=== PATIENT | female | born 1995 | race Caucasian/White ===

== ENCOUNTER 2022-02-20 09:48 | Outpatient (RCR) | payer MEDICAID, SELFPAY ==
--- NOTE | 2022-02-20 09:10 | BH.SGPN.GN ---
Behaviors/Verbalizations/Mental Status: [] Eye contact is good. Motor activity is appropriate. Appearance is casual. Speech is Appropriate. Mood is depressed. Affect is flat. Thoughts are linear and logical. No evidence of psychosis. Reviewed daily check in sheet and no reports of suicidal ideations or intent. Client Response/Progress/Benefit: [] Pt participated at times during group discussions on CBT techniques. Attentive. Pt shared that today was her first day in IOP. Reports that she has been in counseling since I was [age] years old and noticed limited improvement. Over the last several months her depression, anxiety, and stress have increased which has exacerbated her mental health symptoms. She is hoping to learn more effective skillls to better manger her distress. No progress noted as this was pt's first day in IOP. Benefited from group support and encouragment. Group members provided some advice and feedback for her fist day/week in IOP. Will continue in IOP to maintian safety, increase healthy coping, and stabilize mood. Narrative Note: []
--- NOTE | 2022-02-20 10:05 | BH.SGPN.GN ---
Behaviors/Verbalizations/Mental Status: []Client alert and oriented, casually dressed and grooming appears tended to. Eye contact good. Motor activity appropriate. Speech within normal limits. Affect constricted, mood anxious and depressed. Thoughts linear, logical, no signs of hallucinations or delusions. Client Response/Progress/Benefit: []Pt new to IOP program. Did well to remain engaged throughout AEB taking notes, listening attentively, and providing input throughout. Attentive during psychoeducation and discussed the importance of goal-setting with the group. Pt nodded in agreement as group discussed that goals can provide a sense of purpose and something to work towards. Group identified potential benefits of having goals to include: they motivate, increase self-confidence, provide a sense of accomplishment, help improve relationships, and provide a sense of purpose. Group also worked together to identify barriers to goal-setting which included; fear of failure, lack of motivation/procrastination, depression, and lack of support from others. Pt identified personal barriers to include lack of healthy support and self-doubt. Benefited from increased awareness of benefits and barriers to goal-setting. Pt will continue in IOP to prevent decompensation, increase healthy coping and emotion regulation skills, as well as further improve daily functioning. Narrative Note: []
--- NOTE | 2022-02-20 11:08 | BH.SGPN.GN ---
Behaviors/Verbalizations/Mental Status: []Client alert and oriented, casually dressed and groomed. Eye contact good. Motor activity appropriate. Speech within normal limits. Affect constricted, mood anxious and depressed. Thoughts linear, logical, no signs of hallucinations or delusions. Client Response/Progress/Benefit: []Pt was an active participant in group discussions and activities. Engaged in activity. Pt identified a SMART goal for the next week is to: take medications 2x per day over the next week. Pt reported this would benefit her by creating healthier habits and lessening her anxiety. Identified fear of side effects and fear of making things worse as potential barriers to completing this goal. Pt able to identify several solutions, such as educating herself on the benefits and using healthy coping skills, that can help overcome identified barriers. Benefited from group by being able to utilize SMART educate to create a goal. Pt to continue IOP to increase healthy coping skills, challenge distorted and negative thoughts and prevent decompensation. Narrative Note: []
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
--- NOTE | 2022-02-20 15:46 | BH.COMM ---
Communication Note - Communication with Client Communication Note: Met with pt to complete initial paperwork. No significant changes since pre-admission screening. Completed [place] Suicide Screening. Pt presents as low risk. Pt denies any active suicidal ideations, plan, or intent as of 02/20/22. Pt has history of self-injurious behaviors via cutting and burning but denies any in the past 5 years. Pt denies any history of prior suicide attempts. She does report a history of prior active suicide ideation with a plan overdose approximately two years ago following a break-up. Pt admits to writing letters to say good-bye to her family at that time as well but did not act on this plan out of fears of her family having to find her and not wanting to be a burden. Pt admits to having thoughts of and passive SI about once a week at present, and notes these thoughts are fleeting and last no longer than a few seconds. Denies any plan or intent to act on these thoughts and her family are her biggest protective factor. No access to weapons. Future oriented and reports ability to maintain safety. Does not present as imminent risk due to no active SI, plan, or intent. Case discussed with Dr. Meier with plan to admit to [facility] level of care with dx of Major depressive disorder, recurrent, severe without psychosis, F33.2
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
--- NOTE | 2022-02-20 15:48 | BH.PSA ---
Suicide Assessment Treatment Plan Recommendations
--- NOTE | 2022-02-21 09:05 | BH.SGPN.GN ---
Behaviors/Verbalizations/Mental Status: [] Eye contact is good. Motor activity is appropriate. Appearance is casual. Speech is Appropriate. Mood is depressed. Affect is flat. Thoughts are linear and logical. No evidence of psychosis. Reviewed daily check in sheet and no reports of suicidal ideations or intent. Client Response/Progress/Benefit: [] Pt participated when prompted. Attentive. Daily symptom tracker notes 4/5 for depression and anxiety. Emotion for today is overwhelmed. Mental health win was pushing the limits yesterday regarding her mental health. Vague regarding what this meant however notes it was positive. Another mental health win was being here today despite her anxiety. She reports being frustrated with traditional outpatient counseling estimating that she has had several therapist throughout her life due to they keep leaving. Her most recent counseling left the agency and she is in the process of getting a new therapist assigned. Talked about the impact that this has had on her. Group members empathized and provided some feedback. Limited progress noted. Benefited from support, encouragement, and feedback. Will conitnue in IOP to maintain safety, increase health coping, and improve daily functioning. Narrative Note: []
--- NOTE | 2022-02-21 10:05 | BH.SGPN.GN ---
Behaviors/Verbalizations/Mental Status: []Eye contact is good. Motor activity is appropriate. Appearance is casual. Speech is Appropriate. Mood is anxious and depressed. Affect is constricted. Thoughts are linear and logical. No evidence of psychosis. Client Response/Progress/Benefit: []Pt was an active participant in group discussions. Attentive during psychoeducation on 4 types of conflict styles (Competing, Collaborating, Avoiding, and Accommodating). Attentive as group worked to define conflict and identify how conflict is helpful. Pt worked with peers in identifying barriers to addressing or managing conflict which included: learned behaviors, fear of disappointing or upsetting others, fear of being hurt, past negative experiences with conflict, and shutting down. Pt believes her conflict style is accommodating and noted she often goes along with what others say out of fear of upsetting or disappointing others. Pt stated struggling with being a ?people pleaser?. Benefited from group due to increase insight and awareness of conflict, conflict styles, and obstacles to managing conflict. Pt to continue IOP to continue use of healthy coping, improve confidence and healthy communication skills, as well as prevent decompensation. Narrative Note: []
--- NOTE | 2022-02-21 10:10 | BH.SGPN.GN ---
Behaviors/Verbalizations/Mental Status: [] Eye contact is good. Motor activity is appropriate. Appearance is casual. Speech is Appropriate. Mood is depressed. Affect is flat. Thoughts are linear and logical. No evidence of psychosis. Client Response/Progress/Benefit: [] Pt was an active participant in group discussions. Attentive during psycho-education on 4 types of conflict styles (Competing, Collaborating, Avoiding, and Accommodating). Worked with group to define conflict and identify how conflict is helpful. With peers identified barriers to addressing or managing conflict which included: fear of upsetting others, embarrassing self, abandonment, past negative experiences with conflict, and shutting down. Pt believes her conflict style changes are mostly accommodating as she avoids conflict. Benefited from group due to increase insight and awareness of conflict, conflict styles, and obstacles to managing conflict. Will continue in IOP to maintain safety, prevent decompensation, and increase healthy coping skills. Narrative Note: []
--- NOTE | 2022-02-22 09:00 | BH.SGPN.GN ---
Behaviors/Verbalizations/Mental Status: [] Eye contact is good. Motor activity is appropriate. Appearance is casual. Speech is Appropriate. Mood is anxious. Affect is constricted. Thoughts are linear and logical. No evidence of psychosis. Reviewed daily check in sheet and no reports of suicidal ideations or intent. Client Response/Progress/Benefit: [] Pt was an active participant in group discussion. Attentive. Provided appropriate feedback. Mental health win as not crying yesterday which she stated she has been crying everyday for awhile. Pt couldn't identify anything specific that was helped her mood yesterday. Pt reported additional mental health win as making it to IOP all 3 days this week. Pt connected with peer that gas prices are a stressor for her because she also drives an hour to treatment. Stated additional stressor is her house currently being remodeled which increases noise, routine disruption and constantly having workers in her home. Reported she knows the remodel will be helpful to her grandma once it's complete but finds it currently stressful. Emotion is anxious. Benefited from group support, encouragement, and feedback. Will continue in IOP to improve daily functioning, increase healthy coping, and prevent decompensation.
--- NOTE | 2022-02-22 10:07 | BH.SGPN.GN ---
Behaviors/Verbalizations/Mental Status: []Pt alert and oriented, casually dressed and groomed. Eye contact good. Motor activity appropriate. Speech within normal limits. Affect constricted, mood anxious and dysthymic. Thoughts linear, logical, no signs of hallucinations or delusions. Client Response/Progress/Benefit: []Pt responded well to session, attentive and participating in activity. Pt nodding in connection as fellow participants discussed what fear of failure means and what contributes to the development of fear of failure. Group shared that the fear of failure can lead to isolation, self-sabotage, pushing people away, over-committing oneself, avoidance, and not asking for help. Pt shared that fear of failure has impacted her self-confidence and prevented her from trying new things in the past. Pt appeared to benefit from gaining awareness of the impact fear of failure can have on one?s mental health and wellbeing. Will continue IOP tx to reduce unhealthy coping patterns, improve mood stability, and increase daily functioning. Narrative Note: []
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
--- NOTE | 2022-02-22 12:15 | BH.DR.ITP ---
Initial Treatment Plan Patient Information Visit Information: ADMISSION DATE: EXPECTED LOS: 4-6 weeks Problems/Symptoms Problem #1:: Depression Symptom:: Sadness, hopelessness, worthlessness, guilt, anhedonia, apathy, low energy, fatigue, thoughts of self-harm, decreased concentration Problem #2:: Anxiety Symptom:: Worry, rumination, racing thoughts
[2022-02-22 12:21] VITALS: BP 122/67; PULSE 70
--- NOTE | 2022-02-27 09:01 | BH.SGPN.GN ---
Behaviors/Verbalizations/Mental Status: [] Eye contact is fair. Motor activity is appropriate. Appearance is casual. Speech is Appropriate. Mood is dysthymic and anxious. Affect is constricted. Thoughts are linear and logical. No evidence of psychosis. Reviewed daily check in sheet and no reports of suicidal ideations or intent. Client Response/Progress/Benefit: [] Pt was an active participant in group discussion. Attentive. Provided appropriate feedback. Client reported mental health positive as cleaning her room for the first time in a while. Client reported she set a timer for 10 minutes to do some cleaning and end up just continuing to clean till the room was done. Client stated having cleaned her room did not help her mood is much as she had expected it to. Client benefit additional mental positive as calling mental health agency to get a counseling appointment which is something she had been avoiding doing. Client reported stressor as being in a dark cloud for the last 3 weeks and realizing that all her supports are getting tired of it. Client reported she has not taken her increase in medication as recommended by psychiatrist last week because she is feeling anxious about it. She reported part of her is used to being depressed so she is anxious of letting that go. Appeared attentive and receptive to peers feedback about medication. Benefited from group support, encouragement, and feedback. Will continue in IOP to increase healthy coping skills, challenge negative thinking and prevent decompensation.
--- NOTE | 2022-02-27 09:18 | BH.MDN ---
Multi-Disciplinary Note - Note 45-min Individual Time Started:: 11:30 Date: 02/28/22 Purpose of session/treatment goals addressed:: To gather information on client's current stressors, symptoms, triggers, and tx goals. Another goal was build rapport and provide psychoeducation. Eye Contact:: Good Motor Activity:: Appropriate Appearance:: Casual Speech:: Appropriate Mood:: Depressed Affect:: Congruent Thoughts:: Linear, Logical, No evidence of hallucinations/delusions noted Staff Interventions:: thought challenging, motivational interviewing, psychoeducation on: - maintenance cycles and unhealthy coping, rapport building, strengths perspective, treatment planning, goal setting Client Response:: Client responded well to session, open to meeting with therapist. Client reports enjoying the IOP program so far, but at times is struggling with focus, noting ?it?s hard to keep my mind from wandering?. Client reports her biggest stressors right now include a recent falling out with her cousin, relationship issues, caring for her grandmother who has dementia, a recent miscarriage, and beginning new psychiatric medications. Client shared these stressors have been significantly impacting her mental health and that her family is getting tired of ?the constant cloud of negativity?. Client shared she has struggled with mental health for many years and she has found counseling to be of variable help. Client noted that despite being in counseling off and on since the age of 7, she does not feel she has developed any healthy means of coping with her stressors. Described relying heavily on marijuana to cope and numb herself from her problems from the age 12 until about a month ago when she was told she would have to pass a drug test in order to receive gastric bypass surgery. Reports relying on alcohol to cope since then but has not drank in the past two days. Client acknowledges that her substance use is unhealthy and detrimental to her mental health but does not feel she is ready to actively pursue sobriety at this time. Client reports she has only been sober the past two days as her ex-boyfriend, whom she is still involved with, asked her to quit drinking. Reports this has been a toxic relationship in the past and that she would return to drinking if her told her he wouldn?t care. Discussed the importance of sobriety and client during IOP treatment. Client able to see the importance of sobriety in developing healthy long-term coping skills and better managing her current stressors. Reports willingness to begin working with therapist on harms-reduction and improving healthy coping repertoire. Will meet with client again next week. Risks/Concerns:: Client admits to having chronic passive thoughts of . Client denies any active suicidal ideations, plan, or intent. Client is future oriented and reports being motivated to improve her mental health as she is ?tired of feeling like crap?. Progress Toward Goals/Plan:: Second week of IOP tx, limited progress to document as client self-reports difficulties in implementing the healthy skills discussed in the tx environment. Client reports she has learned many of the tx skills discussed in previous counseling experiences but continues to struggle with motivation or desire to consistently implement them. Client endorses mood instability with depression, chronic passive SI, crying spells, low motivation, apathy, hopelessness, worthlessness, low energy and decreased concentration, daily anxiety, and alcohol use disorder. Client is currently working on maintaining sobriety as of 2 days ago, however admits she is only doing so at the request of her ex-boyfriend whom she is still involved with. Reports hx of marijuana misuse but has been sober the last month as this is required for her upcoming gastric bypass surgery. Client commitment to developing healthier means of coping and addressing her unhealthy coping behaviors appears uncertain, and client self-admits to struggling with motivation to follow through with making healthy changes despite recognizing the need to do so. Primary support issues and history of inconsistent tx compliance. Client's goals for IOP are to learn healthy ways to cope with symptoms, develop healthier core beliefs, and be able to better cope with her current stressors. Client is in the process of connecting with outpatient counseling and psychiatry as her previous counselor recently changes positions. Will continue IOP tx to prevent decompensation, reduce the use of unhealthy coping skills, and improve functioning.
--- NOTE | 2022-03-01 09:00 | BH.SGPN.GN ---
Behaviors/Verbalizations/Mental Status: []Pt alert and oriented, neatly dressed and groomed. Eye contact good. Motor activity appropriate. Speech within normal limits. Affect constricted, mood anxious. Thoughts linear, logical, no signs of hallucinations or delusions. Reviewed pt?s symptom tracker, no risk for suicidal ideation, plan, or intent as of 03/01/22 Client Response/Progress/Benefit: []Pt responded well to session, attentive and engaged. Pt reports feeling stressed this morning as pt has not been able to pass her drug test to get approved for bariatric surgery. Pt stated she takes another test in a few weeks and pt is hopeful that she will pass that one. Pt's mental health wins today include getting to IOP despite feeling stressed and finding an outpatient therapist. Pt appeared to benefit from group support and feedback. Pt will continue IOP tx to reduce the use of unhealthy coping skills, increase mood stability, and improve daily functioning. Narrative Note: []
--- NOTE | 2022-03-01 11:10 | BH.SGPN.GN ---
Behaviors/Verbalizations/Mental Status: [] Eye contact is good. Motor activity is appropriate. Appearance is casual. Speech is Appropriate. Mood is euthymic. Affect is full. Thoughts are linear and logical. No evidence of psychosis Client Response/Progress/Benefit: [] Pt participated at times during group discussions. Attentive during psychoeducation on the 4 A's of Coping with Stress (Avoid, Alter, Adapt, Accept). Participated in experiential activity in which group members had to utilize stress management skills in the moment. Pt agreed with group consensus that activity caused her to be frustrated, tense, and anxious. She shared skills that she utilized in the moment to continue with group activity. Pt identified a stressor to focus on which was not drinking to self-medicate and will attempt to implement the coping skills of avoid to not hang out with certain people and alter her feelings by challenging thoughts to focus on the positive of staying sober. Benefited from processing in the moment stress management strategies and identifying new ways to cope with stress. Will continue in IOP to prevent decompensation, stabilize mood, and maintain safety. Narrative Note: []
--- NOTE | 2022-03-07 09:00 | BH.SGPN.GN ---
Behaviors/Verbalizations/Mental Status: [] Eye contact is good. Motor activity is appropriate. Appearance is neat. Speech is Appropriate. Mood is depressed. Affect is flat. Thoughts are linear and logical. No evidence of psychosis. Reviewed daily check in sheet and no reports of suicidal ideations or intent. Client Response/Progress/Benefit: [] Pt participated when prompted. Attentive. Emotion for today is tired. Mental health wins include I painted a mural and I finally started taking the medication that the psychiatrist here prescribed. [facility] psychiatrist had made medication changes on 02/22/22. She is vague on her reasons for not starting the medications earlier and when asked why she started yesterday stated I wanted to have something positive to say in group today. Shared obsessive thoughts about losing her friendships which is causing anxiety however again vague on trigger, frequency, or intensity of these thoughts. Limited progress noted. Benefited from group support and encouragement. Will continue in [facility] to prevent decompensation, stabilize mood, and improve functioning. Narrative Note: []
== END 2022-03-07 23:59 ==
LOC: BHIOP 09:48
PROVIDERS: Referring Provider Psychiatry & Neurology Psychiatry; Visit Provider Psychiatry & Neurology Psychiatry
DX: F33.2 Major depressive disorder, recurrent severe without psychotic features (principal); F41.1 Generalized anxiety disorder; F60.3 Borderline personality disorder; E66.9 Obesity, unspecified; Z72.89 Other problems related to lifestyle; F50.81 Binge eating disorder; F12.99 Cannabis use, unspecified with unspecified cannabis-induced disorder; Z91.410 Personal history of adult physical and sexual abuse; Z79.899 Other long term (current) drug therapy
CPT/HCPCS: 90792; H2012; H2020; S9480; T1002; 90834; 90837

== ENCOUNTER 2022-03-08 07:24 | Outpatient (RCR) | payer MEDICAID, SELFPAY ==
[2022-03-08 01:16] VITALS: BP 122/67; PULSE 70
--- NOTE | 2022-03-08 10:13 | BH.SGPN.GN ---
Behaviors/Verbalizations/Mental Status: []Client alert and oriented, casually dressed and groomed. Eye contact good. Motor activity appropriate. Speech within normal limits. Affect constricted, mood depressed and agitated. Thoughts linear, logical, no signs of hallucinations or delusions. Client Response/Progress/Benefit: [] Client somewhat engaged in session AEB providing input when prompted, taking notes, and listening attentively to others. Continues to take a mostly passive role in discussion. Client participated in activity illustrating how perspective affects mental health. Client participated in group discussion on what shapes our perspective, contributing personal beliefs and values as an example. Client appeared connected to psychoeducation on how our thoughts and attitude can become ?lenses? that we see the world through. Participated in group discussion reviewing how these lenses affect mental health treatment, nodding in agreement that a negative perspective could cause someone to be more likely to give up and assume treatment wont work. Client appeared to benefit from increased knowledge of perspective and how mental health can impact or be impacted by one?s perspective; however continues to struggle with connecting how own perspective is impacting her mental health tx. Will continue IOP treatment to improve application of healthy decision making and coping skills, prevent decompensation, and improve mood stability. Narrative Note: []
--- NOTE | 2022-03-08 11:15 | BH.SGPN.GN ---
Behaviors/Verbalizations/Mental Status: []Pt alert and oriented, neatly dressed and groomed. Eye contact good. Motor activity appropriate. Speech within normal limits. Affect congruent, mood agitated. Thoughts linear, logical, no signs of hallucinations or delusions. Client Response/Progress/Benefit: []Pt was attentive and contributed in small and larger group discussion. Pt completed strengths exploration worksheet and identified personal strengths to include: forgiveness, love, creativity, and artistic ability. Pt shared that working to recognize these personal strengths more consistently will help improve pt?s mood and increase self-worth. Shared wanting to focus on fostering personal strengths by asking for honest feedback and reminding herself of strengths through actions. Also identified barriers for acknowledging and using strengths. Benefited from identifying personal strengths and strategies for enhancing use of identified strengths. Pt to continue IOP tx to reduce the use of unhealthy coping skills, improve mood stability, and prevent decompensation. Narrative Note: []
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
--- NOTE | 2022-03-15 10:13 | BH.SGPN.GN ---
Behaviors/Verbalizations/Mental Status: []Eye contact is good. Motor activity is appropriate. Appearance is casual. Speech is Appropriate. Mood is dysthymic and irritable. Affect is congruent. Thoughts are linear and logical. No evidence of psychosis. Client Response/Progress/Benefit: []Pt connected with topic of Anxiety and participated throughout, providing input and taking notes. Appearing to increase in overall group engagement which is progress as well. Attentive during psychoeducation on different anxiety disorders and participated throughout interactive discussion defining anxiety and identifying cognitive and physiological symptoms of anxiety. Pt stated ?some anxiety can be helpful as it can motivate you?. Common cognitive symptoms identified by group included: ?what if thoughts?, ?fear of failure?, and predicting the future type thoughts. Physiological symptoms reported by patient included: racing heart, restlessness, and muscle tension. Benefited from increased awareness and insight on anxiety and its impact. Plan is to continue in IOP to improve mood stability, increase consistency of healthy coping and distress tolerance skill application, and prevent decompensation. Narrative Note: []
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
--- NOTE | 2022-03-15 15:37 | BH.MTP_ITS ---
Treatment Plan Review Date of Admission:: 02/20/22 Date of Treatment Plan Review:: 03/15/22 Admitting Diagnoses:: 1. Major depressive disorder, recurrent, severe without psychosis. 2. Generalized anxiety disorder. 3. Borderline personality disorder. 4. Alcohol use disorder. 5. History of opiate use disorder in full remission for 3 years. 6. Binge eating disorder. 7. Marijuana use disorder Current Diagnoses:: 1. Major depressive disorder, recurrent, severe without psychosis. 2. Generalized anxiety disorder. 3. Borderline personality disorder. 4. Alcohol use disorder. 5. History of opiate use disorder in full remission for 3 years. 6. Binge eating disorder. 7. Marijuana use disorder Patient's Response to Treatment:: Pt has responded somewhat well to IOP AEB reports of finding the support of the program as well as materials discussed to be helpful, as well as reduction in DSM-5 symptomology. Throughout time in treatment, pt has struggled to maintain consistent attendance, is variable in contributions to group and often plays a passive rather than active role, and struggles with application of skills outside of the tx environment. Pt is engaged in individual therapy sessions, however does not follow-through with the small goals she often sets for herself and continues to report engaging in self- sabotaging/unhealthy coping behaviors. Status of Current Problems and Symptoms: Client reporting and displaying variable progress. Client's mood is often connected to how things are going at home within her relationships with supports. Client continues to self-report she is struggling with using skills learned in IOP, and continues to rely on avoidance or alcohol use to ?numb? herself or prevent from addressing her actual stressors. Per client's DSM 5 cross cutting measure at review her overall symptoms have decreased by 10% compared to intake DSM 5 scores. Problem #1 Problem Name:: Depression Status of Goals:: Obj 1 ? Partially met with ongoing work encouraged. Pt is able to identify healthy coping skills like opposite action, honestly communicating with supports, setting boundaries, removing toxic people and coping behaviors such as alcohol from her environment, as well as engaging in self-care. Pt showing limited use of skills and self-reports lack of motivation to change or begin applying healthier skills as she does not feel ready to replace her unhealthy coping strategies at this time. This limited willingness to address unhealthy coping behaviors may contribute to ongoing difficulties in making progress. obj 2 - met with ongoing work encouraged. Per pt's DSM 5 scores pt's depressive symptoms have decreased by 17%. Team Recommendations:: Team recommends continued work on current goal and objectives to demonstrate pt's ability to maintain progress. Continued discussion on the importance of changing unhealthy coping behaviors and adopting healthier options. Problem #2 Problem Name:: Anxiety Status of Goals:: Obj 1 - Partially met with ongoing work encouraged. Pt is able to identify calming skills like deep breathing, engaging 5 senses and grounding skills. Pt however self-reports minimal use of skills in times of increased stress or anxiety and is encouraged to regularly practice these skills when not in distress to improve likelihood of follow-through during times of increased anxiety. obj 2 ? Not met with some regression reported, as Per pt's DSM 5 scores pt's anxious symptoms have increased by 40%. This is likely due to pt continued reports of limited skill application, focus on external stressors, and lack or motivation to begin addressing or changing current coping habits which may be reinforcing anxiety, such as avoidance or unhealthy distraction. Team Recommendations:: Team recommends continued work on current goal and objectives to demonstrate pt's ability to make healthy changes to promote progress in anxiety management.
--- NOTE | 2022-03-16 09:00 | BH.SGPN.GN ---
Behaviors/Verbalizations/Mental Status: []Pt alert and oriented, neatly dressed and groomed. Eye contact good. Motor activity appropriate. Speech within normal limits. Affect congruent, mood anxious. Thoughts linear, logical, no signs of hallucinations or delusions. Reviewed pt?s symptom tracker, no risk for suicidal ideation, plan, or intent as of 03/16/22 Client Response/Progress/Benefit: P[]Pt responded well to session, attentive and receptive to feedback. Pt reports feeling anxious this morning as pt is worried about the cost of gas as well as an upcoming trip with a friend. Pt states the trip is a positive and a stressor because pt has to drive. The group offered ideas on how to reduce anxiety while driving. Pt shared another mental health win is that she was able to nurse all her house plants back to life and pt feels proud of this. Pt appeared to benefit from connecting with peers. Will continue IOP tx as pt continues to struggle with prolonged mood stability and utilizing healthy coping skills. Narrative Note: []
--- NOTE | 2022-03-20 10:58 | BH.COMM ---
Communication Note - Communication with Client Communication Note: Pt scheduled for group and individual on this date; however, called to inform staff she is ill and was advised by her doctor to take 72 hours to isolate before being around others to prevent spread. Pt reports plans to return for group on of this week and will be seen individually at that time as well.
--- NOTE | 2022-03-27 11:05 | BH.SGPN.GN ---
Behaviors/Verbalizations/Mental Status: []Pt alert and oriented, neatly dressed and groomed. Eye contact good. Motor activity restless. Speech within normal limits. Affect constricted, mood agitated. Thoughts linear, logical, no signs of hallucinations or delusions. Client Response/Progress/Benefit: []Pt responded well to session AEB listening to group discussion and completing the resilience worksheet provided. Pt participated in the discussion of how each resiliency component can help increase personal resiliency. Pt identifying doing well with the resilience components of making connections and self-awareness. Reflected on wanting to improve in the personal resilience component of taking decisive action. Pt stated she wants to work on this by taking decisive action on her mental health and addiction treatment. Pt seemed to benefit from discussing strategies for improving personal resilience. Will discharge from IOP tx today as pt reports her alcohol use is more severe than originally reported and pt will start an IOP for AoD at [facility]. Narrative Note: []
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
== END 2022-03-27 13:19 | disposition home or self-care (01) ==
LOC: BHIOP 07:24
PROVIDERS: Referring Provider Psychiatry & Neurology Psychiatry; Visit Provider Psychiatry & Neurology Psychiatry
DX: F33.2 Major depressive disorder, recurrent severe without psychotic features (principal); F41.1 Generalized anxiety disorder; F60.3 Borderline personality disorder; E66.9 Obesity, unspecified; Z72.89 Other problems related to lifestyle; F50.81 Binge eating disorder; Z91.410 Personal history of adult physical and sexual abuse; Z79.899 Other long term (current) drug therapy
CPT/HCPCS: 99213; H2012; H2020; S9480; 90832